=== PATIENT | male | born 1975 | race Caucasian/White ===

== ENCOUNTER 2016-04-11 12:11 | Emergency (ER) | payer SELFPAY ==
[~2016-04-11] VITALS: Ht 185.4 cm; Wt 95.7 kg
[2016-04-11 13:13] VITALS: BP 131/83
== END 2016-04-11 13:43 | disposition home or self-care (01) ==
LOC: ER 12:18
DX: L03.032 Cellulitis of left toe (principal); E11.9 Type 2 diabetes mellitus without complications; Z88.8 Allergy status to other drugs, medicaments and biological substances
CPT/HCPCS: 10060; 26010

== ENCOUNTER 2016-05-09 09:43 | Emergency (ER) | payer SELFPAY ==
[~2016-05-09] VITALS: Ht 185.4 cm; Wt 94.8 kg
[2016-05-09] MEDS ORDERED: BACITRACIN-POLYMYXIN B TOPICAL OINT UD TOP ONE (13:14)
[2016-05-09 13:37] VITALS: BP 111/76
== END 2016-05-09 13:44 | disposition home or self-care (01) ==
LOC: ER 09:43
DX: L03.032 Cellulitis of left toe (principal); Z88.6 Allergy status to analgesic agent; Z91.041 Radiographic dye allergy status
CPT/HCPCS: 11730

== ENCOUNTER 2017-07-08 14:35 | Emergency (ER) | payer SELFPAY ==
[~2017-07-08] VITALS: Ht 185.4 cm; Wt 94.3 kg
[2017-07-08 14:57] VITALS: BP 111/85
[2017-07-08] MEDS ORDERED: ONDANSETRON ODT 4 MG TAB PO ONE (16:30)
[2017-07-08] MEDS ORDERED: KETOROLAC TROMETH 60MG/2ML VIAL IM ONE (16:30)
[2017-07-08] MEDS ORDERED: diphenhdrAMINE HCL 25 MG CAP PO ONE (16:30)
[2017-07-08] MEDS ORDERED: PROMETHAZINE HCL 6.25 MG/5 ML ORAL SYRUP PO ONE (16:45)
== END 2017-07-08 17:47 | disposition home or self-care (01) ==
LOC: ER 14:42
DX: G43.909 Migraine, unspecified, not intractable, without status migrainosus (principal); E11.9 Type 2 diabetes mellitus without complications; R42 Dizziness and giddiness
CPT/HCPCS: 96372; 99283; J1885; Q0162